=== PATIENT | male | born 1990 | race Caucasian/White ===

== ENCOUNTER 2016-11-30 18:58 | Emergency (ER) | payer OTHER, MEDICAID ==
[2016-11-30 18:58] VITALS: BMI 23.7
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
[2016-11-30 19:30] VITALS: TEMP 98.2; O2SAT 100
--- NOTE | 2016-11-30 20:13 | RAD ---
PROCEDURE: Left Knee Radiographs. HISTORY: COMPARISON: None available. FINDINGS: Mildly rotated lateral view. BONES: No acute displaced fracture. JOINTS: No dislocation. JOINT EFFUSION: Small suprapatellar joint effusion OTHER FINDINGS: None. IMPRESSION: Small suprapatellar joint effusion. No acute displaced fracture or dislocation identified. If symptoms persist, or if there is continued clinical concern, x-ray follow-up in 7-10 days should be considered. Findings discussed with JOSEPH Crook on 11/30/16 at 8:12 p.m..
[2016-11-30 20:38] VITALS: BP 136/72; PULSE 76; RESP 16
== END 2016-11-30 20:38 | disposition home or self-care (01) ==
LOC: ED 18:58
DX: S46.911A Strain of unspecified muscle, fascia and tendon at shoulder and upper arm level, right arm, initial encounter (principal); S89.92XA Unspecified injury of left lower leg, initial encounter; V49.9XXA Car occupant (driver) (passenger) injured in unspecified traffic accident, initial encounter

== ENCOUNTER 2018-10-24 18:28 | Emergency (ER) | payer OTHER, MEDICAID ==
[2018-10-24] MEDS ORDERED: TDAP Vaccine 0.5 mL Syr IM ONE (19:11)
[2018-10-24] MEDS ORDERED: Amoxicillin-Clav 500-125 mg Tab PO STA (19:11)
[2018-10-24 19:14] VITALS: RESP 18; BMI 23.5
--- NOTE | 2018-10-24 19:15 | ED PDOC ---
Arrival/HPI - General Historian: Patient - History of Present Illness Narrative History of Present Illness (Text): 10/24/18 19:16 28 yo M presents to the emergency room complaining of a dog bite to the left calf. 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 Otherwise reports no numbness, decrease in range of motion, other injuries. Has no other complaints <Noemi Prince PA-C - Last Filed: 10/24/18 21:02> - History of Present Illness Narrative History of Present Illness (Text): 10/25/18 18:13 rabies vaccine UTD for dog <Castro Kraus - Last Filed: 10/25/18 18:14> - General Chief Complaint: Abnormal Skin Integrity Time Seen by Provider: 10/24/18 18:34 Past Medical History - Past History Past History: No Previous - Tetanus Immunization Tetanus Immunization: >10 years Ago - Past Medical History Past Medical History: No Previous - Psychiatric Hx Depression: No Hx Emotional Abuse: No Hx Physical Abuse: No Hx Substance Use: No - Past Surgical History Past Surgical History: No Previous - Suicidal Assessment Feels Threatened In Home Enviroment: No <Noemi Prince PA-C - Last Filed: 10/24/18 21:02> Family/Social History Family/Social History: No Known Family HX Smoking Status: Never Smoked Hx Alcohol Use: No Hx Substance Use: No Hx Substance Use Treatment: No <Noemi Prince PA-C - Last Filed: 10/24/18 21:02> Allergies/Home Meds <Noemi Prince PA-C - Last Filed: 10/24/18 21:02> <Castro Kraus - Last Filed: 10/25/18 18:14> Allergies/Adverse Reactions: Allergies No Known Allergies Allergy (Verified 11/30/16 19:11) Review of Systems - Review of Systems Constitutional: absent: Fatigue, Fevers Musculoskeletal: absent: Arthralgias, Myalgias Skin: Other (dog bite). absent: Pruritis, Skin Lesions <Noemi Prince PA-C - Last Filed: 10/24/18 21:02> Physical Exam Vital Signs Temp Pulse Resp BP Pulse Ox 10/24/18 18:48 97.9 F 88 18 131/86 99 Temperature: Afebrile Blood Pressure: Normal Pulse: Regular Respiratory Rate: Normal Appearance: Positive for: Well-Appearing, Non-Toxic, Comfortable Pain Distress: None Mental Status: Positive for: Alert and Oriented X 3 - Systems Exam Lower Extremity: Present: NORMAL PULSES, Normal ROM, Neurovascularly Intact, Capillary Refill < 2 s, Other (+superficial abrasion noted to the posterior L calf). No: Edema, Tenderness, Swelling, Deformity, Temperature Abnormalties Neurological: Present: GCS=15, CN II-XII Intact, Speech Normal, Motor Func Grossly Intact, Normal Sensory Function Skin: Present: Warm, Dry, Normal Color. No: Rashes Psychiatric: Present: Alert, Oriented x 3, Normal Insight, Normal Concentration <Noemi Prince PA-C - Last Filed: 10/24/18 21:02> Vital Signs Temp Pulse Resp BP Pulse Ox 10/24/18 19:28 985.1 F H 98 H 18 125/74 98 10/24/18 18:48 97.9 F 88 18 131/86 99 <Castro Kraus - Last Filed: 10/25/18 18:14> Medical Decision Making ED Course and Treatment: 10/24/18 19:14 Plan : - tdap IM - patient refused - augmentin PO Advised to follow up with primary care physician or referral provided in 1-2 days without fail. Advised to take medication as prescribed. Return to the emergency room at any time for any new or worsening symptoms. Patient states he fully agrees with and understands discharge instructions. States that he agrees with the plan and disposition. Verbalized and repeated discharge instructions and plan. I have given the patient opportunity to ask any additional questions. <Noemi Prince PA-C - Last Filed: 10/24/18 21:02> - Medication Orders Current Medication Orders: Discontinued Medications Amoxicillin/Clavulanate Potassium (Augmentin 500 Mg-125 Mg Tab) 1 tab PO STAT STA; Protocol Stop: 10/24/18 19:12 Last Admin: 10/24/18 19:21 Dose: 1 tab Tetanus/Reduced Diphtheria/Acell Pertussis (Boostrix Vaccine Inj) 0.5 ml IM .ONCE ONE Stop: 10/24/18 19:12 Last Admin: 10/24/18 19:21 Dose: Not Given Non-Admin Reason: Patient Refused Comments: pt refused shot after rn came in to the room Immunization Registry Document 10/24/18 19:21 HN (Rec: 10/24/18 19:22 HN [facility] [place] [facility]-Date provided 10/24/18 MAR Immunization Data Document 10/24/18 19:21 HN (Rec: 10/24/18 19:22 HN [facility] [place] Immunization Data Vaccine Information Sheet Given Yes Vaccine Information Sheet Given Date 10/24/18 <Castro Kraus - Last Filed: 10/25/18 18:14> - PA / DECORATOR LIGHTING FIXTURES / Resident Statement SHANTI has reviewed & agrees with the documentation as recorded. <Noemi Prince PA-C - Last Filed: 10/24/18 21:02> - PA / DECORATOR LIGHTING FIXTURES / Resident Statement SHANTI has reviewed & agrees with the documentation as recorded. <Castro Kraus - Last Filed: 10/25/18 18:14> Disposition/Present on Arrival - Present on Arrival Any Indicators Present on Arrival: No History of DVT/PE: No History of Uncontrolled Diabetes: No Urinary Catheter: No History of Decub. Ulcer: No History Surgical Site Infection Following: None - Disposition Have Diagnosis and Disposition been Completed?: Yes Disposition Time: 19:15 Patient Plan: Discharge <Noemi Prince PA-C - Last Filed: 10/24/18 21:02> <Castro Kraus - Last Filed: 10/25/18 18:14> - Disposition Diagnosis: Dog bite Disposition: HOME/ ROUTINE Condition: STABLE Discharge Instructions (ExitCare): Animal Bites (DC) Additional Instructions: Thank you for letting us take care of you today. You were treated for dog bite. The emergency medical care you received today was directed at your acute symptoms. If you were prescribed any medication, please fill it and take as directed. It may take several days for your symptoms to resolve. Return to the Emergency Department if your symptoms worsen, do not improve, or if you have any other problems. Please contact your doctor in 2 days for re-evaluation and follow up / or call one of the physicians/clinics you have been referred to that are listed on the Patient Visit Information form that is included in your discharge packet. Bring any paperwork you were given at discharge with you along with any medications you are taking to your follow up visit. Our treatment cannot replace ongoing medical care by a primary care provider (PCP) outside of the emergency department. Thank you for allowing the [facility] team to be part of your care today. Prescriptions: Amoxicillin/Potassium Clav [Augmentin 500-125 Tablet] 1 each PO BID #10 tablet Referrals: Uche Yates MD [Staff Provider] - Follow up with primary Forms: [employer] (Pashto), WORK NOTE
[2018-10-24 19:29] VITALS: BP 125/74; PULSE 98; TEMP 985.1; O2SAT 98
== END 2018-10-24 19:28 | disposition home or self-care (01) ==
LOC: ED 18:28
DX: S80.812A Abrasion, left lower leg, initial encounter (principal); W54.0XXA Bitten by dog, initial encounter